=== PATIENT | male | born 1965 | race African-American/Black ===

== ENCOUNTER 2025-03-13 22:22 | Inpatient (IN) | payer OTHER ==
[~2025-03-13] VITALS: Ht 182.9 cm; Wt 89.8 kg
[2025-03-13 22:49] VITALS: O2SAT 99
[2025-03-14] MEDS ORDERED: ONDANSETRON 4MG ODT PO ONE (01:00)
[2025-03-14] MEDS ORDERED: MAGNESIUM/ALUMINUM HYDROXIDE/SIMETHICONE 30ML UDC PO ONE (01:00)
[2025-03-14] MEDS ORDERED: FAMOTIDINE 20MG TABLET PO ONE (01:00)
[2025-03-14 01:32] LABS: BASOPHILS % 0.5 % (0.0-2.0); EOSINOPHILS % 0.9 % (0.0-5.0); HEMATOCRIT. 53.4 % (42.0-52.0); HEMOGLOBIN. 18.0 g/dL (14.0-18.0); LYMPHOCYTES % 14.7 % (20.0-50.0); MEAN PLATELET VOLUME 7.7 fl (7.4-10.4); MONOCYTES % 9.6 % (2.0-8.0); NEUTROPHILS % 74.3 % (40.0-76.0); PLATELET 242 x1000/uL (130-400); RED BLOOD CELL COUNT 5.98 mill/uL (4.7-6.1); RED CELL DISTRIBUTION WIDTH 14.3 % (11.6-14.6)
[2025-03-14] MEDS: ONDANSETRON 4MG ODT PO NR (01:42)
[2025-03-14] MEDS: FAMOTIDINE 20MG TABLET PO NR (01:43)
[2025-03-14] MEDS: MAGNESIUM/ALUMINUM HYDROXIDE/SIMETHICONE 30ML UDC PO NR (01:43)
[2025-03-14] MEDS: SODIUM CHLORIDE 0.9% 1,000 ML IV ONE (01:43)
[2025-03-14 02:05] LABS: CREATININE 1.1 mg/dL (0.6-1.3); INR 1.0; UREA NITROGEN BLOOD 12 mg/dL (9-23)
[2025-03-14 02:06] LABS: ETHANOL BLOOD < 10 mg/dL (<10); PROTEIN TOTAL 8.0 g/dL (6.0-8.3)
[2025-03-14 02:07] LABS: ASPARTATE AMINOTRANSFERASE 23 IU/L (<34); BILIRUBIN DIRECT 0.4 mg/dL (<=3.0); BILIRUBIN TOTAL 1.3 mg/dL (0.1-1.0)
[2025-03-14 02:59] LABS: CLARITY URINE CLEAR (CLEAR); COLOR URINE YELLOW (YELLOW); GLUCOSE URINE NEGATIVE (NEGATIVE); KETONES URINE 1+ (NEGATIVE); LEUKOCYTE ESTERASE URINE NEGATIVE (NEGATIVE); NITRITE URINE NEGATIVE (NEGATIVE); OCCULT BLOOD URINE NEGATIVE (NEGATIVE); PH URINE 5.5 (4.5-8.0); PROTEIN URINE NEGATIVE (NEGATIVE); SPECIFIC GRAVITY URINE 1.021 (1.005-1.030); UROBILINOGEN URINE 1.0 E.U./dL (0.2-1.0)
[2025-03-14] MEDS: IOHEXOL-300 100 ML BOTTLE ONE (02:59)
[2025-03-14 03:28] LABS: *AMPHETAMINES SCREEN URINE NEGATIVE (NEGATIVE); *BARBITURATES SCREEN URINE NEGATIVE (NEGATIVE); *BENZODIAZEPINES SCREEN URINE NEGATIVE (NEGATIVE); *COCAINE SCREEN URINE NEGATIVE (NEGATIVE); METHADONE URINE SCREEN NEGATIVE (NEGATIVE); OPIATES URINE SCREEN NEGATIVE (NEGATIVE)
[2025-03-14 03:29] LABS: CANNABINOID URINE SCREEN PRESUMPTIVE POSITIVE (NEGATIVE); ECSTASY MDMA SCREEN URINE NEGATIVE (NEGATIVE); PHENCYCLIDINE URINE SCREEN NEGATIVE (NEGATIVE)
[2025-03-14] MEDS: MORPHINE SULFATE 2 MG/ML INJ (NOT FOR IM USE) IV ONE (04:24)
[2025-03-14] MEDS ORDERED: AMLO-504 PO (05:37)
[2025-03-14 08:00] VITALS: BP 142/61; PULSE 62; RESP 18; TEMP 36.8; O2SAT 100
[2025-03-14] MEDS ORDERED: ACETAMINOPHEN 325MG TABLET PO PRN ×2 (08:45)
[2025-03-14] MEDS ORDERED: HYDRALAZINE 20MG/ML VIAL IV PRN (08:45)
[2025-03-14] MEDS ORDERED: MORPHINE SULFATE 2 MG/ML INJ (NOT FOR IM USE) IV PRN (08:45)
[2025-03-14] MEDS ORDERED: ONDANSETRON HCL 4MG/2ML INJ IV PRN (08:45)
[2025-03-14] MEDS ORDERED: GUAIFENESIN 200MG/10ML SUGAR FREE UDC PO PRN (08:45)
[2025-03-14] MEDS ORDERED: DOCUSATE SODIUM 100MG CAPSULE PO PRN (08:45)
[2025-03-14] MEDS ORDERED: IPRATROPIUM/ALBUTEROL 0.5-3(2.5)MG/3ML NEB HHN PRN (08:45)
[2025-03-14] MEDS ORDERED: LORAZEPAM 0.5MG TABLET PO PRN (08:45)
[2025-03-14] MEDS: DEXT 5%/0.9% NACL 1,000 ML IV SCH (09:00)
[2025-03-14] MEDS ORDERED: NALOXONE HCL 0.4MG/ML VIAL IV PRN (09:15)
[2025-03-14] MEDS ORDERED: HYDRALAZINE 10 MG in SODIUM CHLORIDE 0.9% 49.5 ML IV PRN (09:30)
[2025-03-14] MEDS: CLONIDINE 0.1MG TABLET PO PRN (09:47)
[2025-03-14 12:00] VITALS: BP 109/58; PULSE 62; RESP 18; TEMP 36.8; O2SAT 99
[2025-03-14 16:00] VITALS: BP 141/59; PULSE 63; RESP 18; TEMP 36.4; O2SAT 98
[2025-03-14 16:24] VITALS: BP 141/59; PULSE 63; RESP 18; TEMP 36.418
[2025-03-14 18:01] LABS: LDL CHOLESTEROL 110.0 mg/dL (5-100); TRIGLYCERIDE 73.0 mg/dL (0-150)
[2025-03-14 18:05] LABS: T4 FREE 1.54 ng/dL (0.89-1.76)
[2025-03-14 20:00] VITALS: BP 131/58; PULSE 57; RESP 18; TEMP 36.3; O2SAT 98
[2025-03-15] VITALS: BP 132/50; PULSE 55; RESP 18; TEMP 36.5; O2SAT 100
[2025-03-15 04:00] VITALS: BP 141/61; PULSE 62; RESP 18; TEMP 36.3; O2SAT 98
[2025-03-15 08:00] VITALS: BP 149/65; PULSE 65; RESP 18; TEMP 36.4; O2SAT 99
[2025-03-15] MEDS: AMLODIPINE 10MG TABLET PO SCH (08:49)
[2025-03-15] MEDS: FAMOTIDINE 20MG/2ML VIAL IV SCH (08:49)
[2025-03-15 09:45] LABS: BASOPHILS % 0.7 % (0.0-2.0); EOSINOPHILS % 3.7 % (0.0-5.0); HEMATOCRIT. 49.9 % (42.0-52.0); HEMOGLOBIN. 16.5 g/dL (14.0-18.0); LYMPHOCYTES % 22.6 % (20.0-50.0); MEAN PLATELET VOLUME 7.9 fl (7.4-10.4); MONOCYTES % 9.4 % (2.0-8.0); NEUTROPHILS % 63.6 % (40.0-76.0); PLATELET 194 x1000/uL (130-400); RED BLOOD CELL COUNT 5.54 mill/uL (4.7-6.1); RED CELL DISTRIBUTION WIDTH 14.3 % (11.6-14.6)
[2025-03-15 10:22] LABS: CREATININE 1.1 mg/dL (0.6-1.3); UREA NITROGEN BLOOD 9 mg/dL (9-23)
[2025-03-15 12:00] VITALS: BP 160/75; PULSE 64; RESP 18; TEMP 36.5; O2SAT 98
[2025-03-15] MEDS: LOSARTAN 100 MG TABLET PO SCH (17:24)
[2025-03-15 17:27] VITALS: BP 134/50; PULSE 60; RESP 18; TEMP 97.5
== END 2025-03-15 18:53 | disposition home or self-care (01) | DRG 389 ==
LOC: ER 22:22 → 6EST 03-14 03:46 → EDBEDREQ 03-14 04:00 → EDBEDREQTM 03-14 04:00 → ENRESERV 03-14 05:32
PROVIDERS: ADMIT Hospitalist; ATTEND Hospitalist
DX: K56.52 Intestinal adhesions [bands] with complete obstruction (principal); E87.1 Hypo-osmolality and hyponatremia; I10 Essential (primary) hypertension; F10.10 Alcohol abuse, uncomplicated; F12.10 Cannabis abuse, uncomplicated; Z79.899 Other long term (current) drug therapy
CPT/HCPCS: 36415; 74018; 74177; 80048; 80061; 80076; 80305; 80320; 81003; 83930; 84439; 84443; 85025; 86850; 86900; 93970; 96361; 96374; 99285; J1308; J2270; J7030; J7042; Q0162; Q9967; G0480